=== PATIENT | female | born 1985 | race African-American/Black ===

== ENCOUNTER 2017-07-06 17:15 | Emergency (ER) | payer OTHER, MEDICAID ==
[~2017-07-06] VITALS: Ht 160 cm; Wt 68.5 kg
[~2017-07-06 17:15] MED LIST: PROTONIX40 M1 PO
[2017-07-06] MEDS ORDERED: OSELB75 PO (18:45)
[2017-07-06 18:55] LABS: INFLUENZA A ANTIGEN None Detected (None Detect)
[2017-07-06 19:29] VITALS: BP 112/69
== END 2017-07-06 19:29 | disposition home or self-care (01) ==
LOC: M.ERS 17:15
PROVIDERS: Nurse Practitioner Psychiatric/Mental Health
DX: J10.1 Influenza due to other identified influenza virus with other respiratory manifestations (principal); Z98.890 Other specified postprocedural states